=== PATIENT | female | born 1990 | race Caucasian/White ===

== ENCOUNTER 2017-05-10 05:47 | Emergency (ER) | payer OTHER ==
[~2017-05-10] VITALS: Ht 180.3 cm; Wt 61.2 kg
--- NOTE | 2017-05-10 06:30 | NUR ---
PT PRESENTS WITH LEFT ANKLE PAIN NON-RADIATING AFTER ROCK CLIMBING YESTERDAY. ANKLE IS PAINFUL AND SWOLLEN WITH MILD DEFORMITY. PT ABLE TO AMBULATE WITH DIFFICULTY. PT STABLE AT THIS TIME
[2017-05-10 08:21] VITALS: BP 100/70
--- NOTE | 2017-05-10 08:22 | NUR ---
Patient discharged to home in stable condition. Written and verbal after care instructions given. Patient verbalizes understanding of instruction.Crutches dispensed. Pt instructed on proper use of crutches. Patient able to demonstrate correct use of crutches.
== END 2017-05-10 08:22 | disposition home or self-care (01) ==
LOC: ER 05:47
DX: S99.912A Unspecified injury of left ankle, initial encounter (principal); J45.909 Unspecified asthma, uncomplicated; W18.39XA Other fall on same level, initial encounter; Y93.31 Activity, mountain climbing, rock climbing and wall climbing; Y92.89 Other specified places as the place of occurrence of the external cause; Y99.8 Other external cause status
CPT/HCPCS: 73610-TC; A4606; Z7610

== ENCOUNTER 2017-08-07 14:58 | Emergency (ER) | payer SELFPAY ==
[~2017-08-07] VITALS: Ht 180.3 cm; Wt 59.0 kg
[2017-08-07 15:01] VITALS: BP 117/64
[2017-08-07] MEDS ORDERED: IBUPROFEN 600 MG TABLET PO ONE ×2 (15:39→16:00)
[2017-08-07] MEDS ORDERED: IBUPROFEN 400 MG TABLET ONE (15:40)
[2017-08-07] MEDS ORDERED: IBUPROFEN 200 MG TABLET ONE (15:41)
--- NOTE | 2017-08-07 16:02 | NUR ---
pt rec'd to er c/o rt hand pain was playing soccer ice to site given motrin 600 mg po nowAWAITING EVALUATION BY ER PROVIDER.
== END 2017-08-07 16:28 | disposition home or self-care (01) ==
LOC: ER 15:00
DX: S52.611A Displaced fracture of right ulna styloid process, initial encounter for closed fracture (principal); W21.02XA Struck by soccer ball, initial encounter; Y93.66 Activity, soccer; Y92.89 Other specified places as the place of occurrence of the external cause; Y99.8 Other external cause status; J45.909 Unspecified asthma, uncomplicated
CPT/HCPCS: 29125; 73110; 99284; A4606; Z7610

== ENCOUNTER 2020-04-01 21:43 | Emergency (ER) | payer MEDICAID ==
[~2020-04-01] VITALS: Ht 180.3 cm; Wt 59.0 kg
[2020-04-01 21:48] VITALS: BP 138/82
[2020-04-01] MEDS ORDERED: ACETAMINOPHEN ES 500 MG TABLET ONE (22:27)
[2020-04-01] MEDS ORDERED: ACETAMINOPHEN 325 MG TABLET PO ONE (22:30)
== END 2020-04-01 23:13 | disposition home or self-care (01) ==
LOC: ER 21:47
DX: S92.511A Displaced fracture of proximal phalanx of right lesser toe(s), initial encounter for closed fracture (principal); J45.909 Unspecified asthma, uncomplicated; W22.8XXA Striking against or struck by other objects, initial encounter; Y93.01 Activity, walking, marching and hiking; Y92.89 Other specified places as the place of occurrence of the external cause; Y99.8 Other external cause status
CPT/HCPCS: 73660-TC